=== PATIENT | male | born 1980 | race Caucasian/White ===

== ENCOUNTER 2018-07-10 20:34 | Emergency (ER) | END 2018-07-10 22:45 | disposition home or self-care (01) ==

== ENCOUNTER 2019-04-15 21:16 | Emergency (ER) | payer MEDICAID ==
[~2019-04-15] VITALS: Ht 162.6 cm; Wt 82.9 kg
[~2019-04-15 21:16] MED LIST: CEFD300C2 PO; CEPH-443 PO; MUPI22OI2 TOP; NAPR-985 PO; SULF1TAB31 PO
[2019-04-15 21:26] VITALS: BP 128/68; PULSE 67; RESP 18; Ht 162.6 cm; Wt 82.9 kg
[2019-04-15] MEDS ORDERED: DIPHTH/TET/ACEL PERTUSS (ADULT) 0.5 ML VIAL IM* ONE (23:00)
--- NOTE | 2019-04-18 22:45 | ERD ---
ER Documentation Chief Complaint Chief Complaint puncture wound left 3rd finger while working with screw 3 days ago HPI 39yo M presents to ED for evaluation of puncture wound to the left 3rd finger. Pt states to have been working with a screw 3 days ago when accidentally punctured the tip of his left 3rd finger near the nail edge. Pt states puncture was superficial with minimal bleeding at time of incident, but notes swelling has increased over the past few days with purulent discharge expressible at the lateral edge of the nail. He is not currently taking any medication for his pain, but notes to have been soaking his finger in warm water to help alleviate the swelling and discharge. He denies loss of ROM, numbness, or tingling of the affected digit. No hx of DM, CA, or IVDA. No fevers, chills, or sweats. ROS All systems reviewed and are negative except as per history of present illness. Medications Home Meds Active Scripts Cephalexin* (Keflex*) 500 Mg Capsule, 500 MG PO QID for 10 Days, #40 CAP Prov:TAZ RODRIGUEZ PA-C 04/15/19 Sulfamethoxazole/Trimethoprim* (Bactrim Ds* Tablet) 1 Each Tablet, 1 TAB PO BID for 7 Days, #14 TAB Prov:TAZ RODRIGUEZ PA-C 04/15/19 Mupirocin* (Bactroban*) 2% -22 Gram Oint...g., 1 APPLIC TOP TID, #1 TUB SITE OF APPLICATION: Prov:WOO,SHEREEN 07/10/18 Naproxen* (Naprosyn*) 500 Mg Tablet, 500 MG PO BID PRN for PAIN AND/OR INFLAMMATION, #30 TAB Prov:WOO,SHEREEN 07/10/18 Sulfamethoxazole/Trimethoprim* (Bactrim Ds* Tablet) 1 Each Tablet, 1 TAB PO BID for 10 Days, #20 TAB Prov:WOO,SHEREEN 07/10/18 Cefdinir (Cefdinir) 300 Mg Capsule, 300 MG PO BID for 10 Days, #20 CAP 0 Refills Prov:WOO,SHEREEN 07/10/18 Allergies Allergies: Coded Allergies: No Known Drug Allergies (Verified Allergy, Unknown, 04/15/19) PMhx/Soc Medical and Surgical Hx: pt denies Medical Hx, pt denies Surgical Hx Hx Alcohol Use: Yes (beer) Hx Substance Use: No Hx Tobacco Use: Yes Smoking Status: Current every day smoker Physical Exam Vitals Vital Signs Date Temp Pulse Resp B/P (MAP) Pulse Ox O2 O2 Flow FiO2 Time Delivery Rate 04/15/19 98.5 67 18 128/68 97 21:26 (88) Physical Exam Const: No acute distress Head: Atraumatic Eyes: Normal Conjunctiva ENT: Normal External Ears, Nose and Mouth. Neck: Full range of motion. No meningismus. Resp: Clear to auscultation bilaterally Cardio: Regular rate and rhythm, no murmurs Skin: No petechiae or rashes Back: No midline or flank tenderness Ext: No cyanosis. Small superficial scab to the lateral nail edge of the left 3rd digit. Visible edema to the distal phalynx of the left 3rd digit with surro unding erythema to the lateral nail edge, no fluctuance, no purulent discharge, no warmth. Full ROM of the left digits and wrist. Sensation intact to radial, medial, and ulnar distribution. Cap refill less than 2 seconds. Radial pulse 2+. Neur: Awake and alert Psych: Normal Mood and Affect Results 24 hrs Current Medications Medications Dose Sig/Varsha Start Time Status Last (Trade) Ordered Route PRN Stop Time Admin Dose Reason Admin Diphtheria/ 0.5 ml ONCE ONCE 04/15/19 DC 04/15/19 Tetanus/Acell IM* 23:00 22:50 Pertussis 04/15/19 23:01 (Adacel) Procedures/MDM MDM: 39yo M presents to ED with paronychia s/p puncture to the left 3rd digit with a screw 3 days ago. Puncture superficial and pt NVI. VSS, afebrile. Tetanus updated while in ED. At this time I have low suspicion for fracture, tendon injury, flexor tenosynovitis, cellulitis, MRSA, or other acute process. Given pt paronychia already draining, I&D not performed. Pt advised to continue with warm soaks and prescription for Bactrim and Keflex given. I have advised for follow- up with PCP within the next 1-2 days and counseled regarding ED return precautions.At this time pt stable for discharge. Pt expressed verbal understanding and agreement to treatment plan. All questions addressed and answered. Departure Diagnosis: Primary Impression: Puncture wound Additional Impression: Paronychia Condition: Stable Patient Instructions: Paronychia, Puncture Wound, General Additional Instructions: Please return to the ED if symptoms persist or worsen despite antibiotic treatme nt. As well as if fever or chills develop. TAZ RODRIGUEZ PA-C Apr 18, 2019 22:44
== END 2019-04-15 23:21 | disposition home or self-care (01) ==
LOC: FTE 21:16
DX: S61.333A Puncture wound without foreign body of left middle finger with damage to nail, initial encounter (principal); L03.012 Cellulitis of left finger; F17.210 Nicotine dependence, cigarettes, uncomplicated; W27.0XXA Contact with workbench tool, initial encounter; Y92.89 Other specified places as the place of occurrence of the external cause; Z23 Encounter for immunization
CPT/HCPCS: 90471; 90715; Z7502